=== PATIENT | female | born 1995 | race Two or more races ===

== ENCOUNTER 2024-10-30 05:51 | Emergency (ER) | payer OTHER ==
[~2024-10-30] VITALS: Ht 160 cm; Wt 75.0 kg
[2024-10-30 06:05] VITALS: BP 112/70; PULSE 125; RESP 20; TEMP 99.4; O2SAT 97
[2024-10-30 06:21] LABS: COVID AG,FIA SOURCE NASAL SWAB
[2024-10-30 06:38] LABS: INFLUENZA TYPE A NEGATIVE FOR TYPE A (NEGATIVE); INFLUENZA TYPE B NEGATIVE FOR TYPE B (NEGATIVE)
[2024-10-30 07:17] LABS: SARS-COV2 (COVID) ANTIGEN,FIA Positive (Negative)
== END 2024-10-30 10:28 | disposition home or self-care (01) ==
LOC: EMS 05:55
DX: U07.1 COVID-19 (principal)
CPT/HCPCS: 87804; 99283